=== PATIENT | female | born 1990 | race Caucasian/White ===

== ENCOUNTER → 2019-03-23 | Outpatient (REF) | payer OTHER | LOC: M SFHCLERA 11:41 | PROVIDERS: ATTEND Family Medicine | DX: Z01.419 Encounter for gynecological examination (general) (routine) without abnormal findings (principal) ==

== ENCOUNTER → 2020-12-17 | Outpatient (CLI) | payer OTHER | LOC: M LABSMTC 09:30 | PROVIDERS: ATTEND Anesthesiology | DX: Z20.828 Contact with and (suspected) exposure to other viral communicable diseases (principal); Z11.59 Encounter for screening for other viral diseases ==

== ENCOUNTER 2020-12-20 14:02 | Day surgery (SDC) | payer OTHER ==
[~2020-12-20] VITALS: Ht 167.6 cm; Wt 64.0 kg
[~2020-12-20 14:02] MED LIST: LR 1,000 ML IV ONE
[2020-12-20 15:04] LABS: HEMATOCRIT 40.8 % (36.0-47.0); HEMOGLOBIN 12.9 g/dl (12.0-15.5); MEAN CORPUSCULAR HEMOGLOBIN 25.6 pg (27.0-33.0); MEAN CORPUSCULAR HGB CONC 31.6 g/dl (32.0-36.5); MEAN CORPUSCULAR VOLUME 81.1 fl (80.0-96.0); PLATELET COUNT, AUTOMATED 177 10^3/uL (150-450); RED BLOOD COUNT 5.03 10^6/uL (4.00-5.40); WHITE BLOOD COUNT 6.2 10^3/uL (4.0-10.0)
[2020-12-20] MEDS ORDERED: MIDAZOLAM INJ 2MG/2ML VIAL (J2250 PER 1MG) As Ordered ONE (16:04)
[2020-12-20] MEDS ORDERED: LIDOCAINE 2% 100MG/5ML SDV (FOR ANES.) As Ordered ONE (16:04)
[2020-12-20] MEDS ORDERED: ONDANSETRON 4MG/2ML VIAL As Ordered ONE (16:04)
[2020-12-20] MEDS ORDERED: fentaNYL 100 MCG/2 ML INJECTION (J3010) As Ordered ONE (16:04)
[2020-12-20] MEDS ORDERED: dexameTHASONE 4 MG/ML 1ML VIAL (J1100 PER 1MG) As Ordered ONE (16:04)
[2020-12-20] MEDS ORDERED: propofoL 200 MG/20 ML VIAL As Ordered ONE (16:04)
[2020-12-20] MEDS ORDERED: ROCURONIUM BROMIDE 50 MG/5 ML VIAL As Ordered ONE (16:07)
[2020-12-20] MEDS ORDERED: BUPIVACAINE HCL 0.25% 10ML VIAL As Ordered ONE (16:10)
[2020-12-20] MEDS ORDERED: ACETAMINOPHEN 1000MG 100ML IV BTL (OFIRMEV) (J0131 PER 10MG) As Ordered ONE (16:52)
[2020-12-20] MEDS ORDERED: SUGAMMADEX SODIUM 500 MG/5 ML VIAL (BRIDION) As Ordered ONE (16:54)
[2020-12-20] MEDS ORDERED: KETOROLAC 60MG 2ML VIAL As Ordered ONE (16:54)
--- NOTE | 2020-12-20 17:13 | ROOPDOC ---
[facility] Report Of Operation Report of Operation DATE OF PROCEDURE: 12/20/20 PREPROCEDURE DIAGNOSES: Undesired fertility POSTPROCEDURE DIAGNOSES: same. PROCEDURE: Laparoscopic bilateral salpingectomy. SURGEON: Carlo Don MD ANESTHESIA: Gen. endotracheal anesthesia. ESTIMATED BLOOD LOSS: Approximately 10 mL. COMPLICATIONS: None. FINDINGS: Normal pelvis including uterus, fallopian tubes and ovaries. Normal upper abdomen. PROCEDURE NOTE: Patient was taken to the operating room where general endotracheal anesthesia induced. She was prepped draped sterile fashion in the dorsal lithotomy position. A sponge stick was placed in the vagina to use as a manipulator. The bladder was emptied with a catheter. A periumbilical incision was made with the scalpel. A Veress needle was placed through this incision while tenting up on the skin of the abdomen. Intra-abdominal location of the Veress needle was assessed with use of a saline filled syringe. A pneumoperitoneum was created. The Veress needle was removed. A 5 mm trocar using the Visiport was inserted through this incision. A 5 and 8 mm suprapubic port was placed under direct visualization without difficulty. A 5 mm scope with camera used to visualize the abdomen and pelvis. The patient was placed in Trendelenburg position. A grasping instrument was used to elevate each fallopian tube. The fallopian tubes were detached from their broad ligament attachments by using LigaSure. Both fallopian tubes were excised near their origins. Both fallopian tubes removed through the suprapubic ports. All instruments were removed. The pneumoperitoneum was released. The skin was closed with 4-0 Monocryl subcuticular sutures. Sponge, instrument and needle counts are correct. CARLO DON MD Dec 20, 2020 17:13
[2020-12-20] MEDS ORDERED: OXYC1TAB23 PO (17:14)
[2020-12-20] MEDS ORDERED: IBUP-1022 PO (17:15)
[2020-12-20] MEDS ORDERED: fentaNYL 100 MCG/2 ML INJECTION (J3010) IV PRN (17:25)
[2020-12-20] MEDS ORDERED: METOCLOPRAMIDE INJ 10MG/2ML VIAL (J2765 PER 1) IV PRN (17:25)
[2020-12-20] MEDS ORDERED: PERCOCET 5MG/325MG TAB PO PRN ×2 (17:25→17:30)
[2020-12-20] MEDS ORDERED: ONDANSETRON 4MG/2ML VIAL IV PRN (17:25)
[2020-12-20] MEDS ORDERED: LR 1,000 ML IV SCH ×2 (17:25)
[2020-12-20 18:30] VITALS: BP 115/75
== END 2020-12-20 18:51 | disposition home or self-care (01) ==
LOC: M SDC 14:02
PROVIDERS: ATTEND Specialist
DX: Z30.2 Encounter for sterilization (principal)
CPT/HCPCS: 36415; 58661; 81025; 85027; 88302; J0131; J1100; J1885; J2250; J2405; J3010